=== PATIENT | male | born 1975 | race African-American/Black ===

== ENCOUNTER 2017-01-27 12:34 | Emergency (ER) | payer MEDICAID ==
[~2017-01-27] VITALS: Ht 175.3 cm; Wt 90.0 kg
[2017-01-27] MEDS ORDERED: MORP15TA67 PO (12:49)
[2017-01-27] MEDS ORDERED: ONDANSETRON HCL 4MG/2ML VIAL IV STA (13:21)
[2017-01-27] MEDS ORDERED: MORPHINE SULFATE 4 MG/ML CPJ (NOT FOR IM USE) IV STA (13:21)
[2017-01-27] MEDS ORDERED: MORPHINE SULFATE 2 MG/ML CPJ (NOT FOR IM USE) IV NR (13:45)
[2017-01-27 14:07] LABS: EOSINOPHILS % 1.7 % (0.0-5.0); HEMATOCRIT. 40.6 % (42.0-52.0); HEMOGLOBIN. 12.6 g/dL (14.0-18.0); LYMPHOCYTES % 23.4 % (20.0-50.0); MEAN CORPUSCULAR HEMOGLOBIN 25.5 pg (28.0-32.0); MEAN CORPUSCULAR VOLUME 82.4 fL (80.0-94.0); MEAN PLATELET VOLUME 9.1 fl (7.4-10.4); MONOCYTES % 10.4 % (2.0-8.0); NEUTROPHILS % 63.5 % (40.0-76.0); PLATELET 266 x1000/uL (130-400); RED BLOOD CELL COUNT 4.93 mill/uL (4.7-6.1); RED CELL DISTRIBUTION WIDTH 16.9 % (11.6-14.6)
[2017-01-27 14:23] LABS: CARBON DIOXIDE 27 mEq/L (21-32); CHLORIDE 102 mEq/L (98-107); INR 1.2; PROTHROMBIN TIME 12.4 sec (9.4-11.6); TROPONIN I 0.04 ng/mL (0.00-0.04)
[2017-01-27 15:06] VITALS: BP 133/99
== END 2017-01-27 16:30 | disposition home or self-care (01) ==
LOC: ER 12:46
DX: M79.1 Myalgia (principal); I11.0 Hypertensive heart disease with heart failure; R00.0 Tachycardia, unspecified; D64.9 Anemia, unspecified; Z88.8 Allergy status to other drugs, medicaments and biological substances
CPT/HCPCS: 36415; 71010; 80053; 83880; 84484; 85025; 85610; 93005; 96374; 96375; 99285; J2270; J2405; Z7610

== ENCOUNTER 2017-01-27 16:40 | Emergency (ER) | payer MEDICAID, OTHER ==
[~2017-01-27] VITALS: Ht 175.3 cm; Wt 83.0 kg
[~2017-01-27 16:40] MED LIST: MORP15TA67 PO
[2017-01-27 16:42] VITALS: BP 138/99
== END 2017-01-27 18:34 | disposition home or self-care (01) ==
LOC: ER 18:06
DX: Z76.0 Encounter for issue of repeat prescription (principal); I11.0 Hypertensive heart disease with heart failure; F31.9 Bipolar disorder, unspecified; Z88.8 Allergy status to other drugs, medicaments and biological substances
CPT/HCPCS: 93005; 99283